=== PATIENT | male | born 1985 | race Caucasian/White ===

== ENCOUNTER → 2018-07-04 | Outpatient (REF) | payer OTHER | LOC: M SMT 13:23 | DX: Z30.2 Encounter for sterilization (principal) ==

== ENCOUNTER → 2018-09-05 | Outpatient (REF) | payer OTHER ==
[2018-09-05 12:23] LABS: IMMOTILE SPERM ABSENT (ABSENT); MOTILE SPERM ABSENT (ABSENT); SEMEN APPEARANCE OPAQUE (OPAQUE); SEMEN VISCOSITY LIQUID (LIQUID); SEMEN VOLUME 4.1 ml (4.0-5.0); WBC CONCENTRATION <=1 M/ml (<=1 M/ml)
[2018-09-05 12:24] LABS: IMMMOTILE SPERM CENTRIFUGED ABSENT (ABSENT); MOTILE SPERM CENTRIFUGED ABSENT (ABSENT)
== END ==
LOC: M SMT 11:19
DX: Z30.2 Encounter for sterilization (principal)

== ENCOUNTER → 2022-04-29 | Outpatient (CLI) | payer OTHER | LOC: M SLEEP 20:00 | PROVIDERS: ATTEND Physician Assistant | DX: R40.0 Somnolence (principal); Z53.9 Procedure and treatment not carried out, unspecified reason ==